=== PATIENT | male | born 1950 | race Caucasian/White ===

== ENCOUNTER 2023-02-24 16:25 | Emergency (ER) | payer MEDICAID, MEDICARE ==
[2023-02-24] MEDS: Sodium Chloride 0.9% 1,000 ML IV ONE (16:45)
[2023-02-24 16:54] LABS: BASOPHILS ABSOLUTE AUTO 0.01 10^3/uL (0.00-0.10); BASOPHILS PERCENT AUTO 0.1 % (0.0-1.0); EOSINOPHILS ABSOLUTE AUTO 0.13 10^3/uL (0.10-0.30); EOSINOPHILS PERCENT AUTO 1.7 % (1.0-3.0); HEMATOCRIT 50.3 % (40.0-52.0); HEMOGLOBIN 16.8 g/dL (13.0-17.0); IMMATURE GRAN ABSOLUTE AUTO 0.01 10^3/uL (0.00-0.50); IMMATURE GRAN PERCENT AUTO 0.1 % (0.0-5.0); LYMPHOCYTES ABSOLUTE AUTO 2.59 10^3/uL (1.00-4.00); LYMPHOCYTES PERCENT AUTO 33.5 % (20.0-40.0); MEAN CORPUSCULAR HEMOGLOBIN 30.8 pg (27.0-31.0); MEAN CORPUSCULAR HGB CONC 33.4 g/dL (32.0-36.0); MEAN CORPUSCULAR VOLUME 92.1 fL (82.0-92.0); MEAN PLATELET VOLUME 9.1 fL (7.4-10.4); MONOCYTES ABSOLUTE AUTO 0.73 10^3/uL (0.10-0.80); MONOCYTES PERCENT AUTO 9.4 % (2.0-8.0); NEUTROPHILS ABSOLUTE AUTO 4.27 10^3/uL (2.50-7.00); NEUTROPHILS PERCENT AUTO 55.2 % (50.0-70.0); PLATELET COUNT,PLT 148 10^3/uL (150-400); RED BLOOD CELL COUNT 5.46 10^6/uL (4.50-6.00); RED CELL DISTRIBUTION WIDTH 12.8 % (11.5-14.5); WHITE BLOOD CELL COUNT,WBC 7.74 10^3/uL (5.00-10.00)
[2023-02-24] MEDS: Labetalol 100 MG/20 ML MDV IVPUSH ONE ×2 (17:00→17:19)
[2023-02-24 17:09] LABS: ALBUMIN 3.32 g/dL (3.40-5.00); ANION GAP 13.7 mmol/L (5-15); BILIRUBIN TOTAL 0.2 mg/dL (0.2-1.0); CALCIUM 8.8 mg/dL (8.7-10.3); CARBON DIOXIDE,CO2 27.3 mmol/L (21.0-32.0); CREATININE 1.15 mg/dL (0.51-1.17); EST CRCL DRUG DOSING (CG) 61.01 mL/min; PROTEIN TOTAL,TP 7.2 g/dL (6.4-8.2)
[2023-02-24] MEDS: Hydrochlorothiazide 25 MG Tab PO ONE (17:56)
[2023-02-24] MEDS: Lisinopril 20 MG Tab PO STA (17:56)
== END 2023-02-24 18:20 | disposition home or self-care (01) ==
LOC: KA.ED 16:25
DX: E86.0 Dehydration (principal); I10 Essential (primary) hypertension; Z91.048 Other nonmedicinal substance allergy status
CPT/HCPCS: 36415; 71045; 80053; 83605; 84484; 85025; 93005; 96361; 96374; 99285-25; A9270-GY; J3490; J7030

== ENCOUNTER 2024-05-27 16:38 | Emergency (ER) | payer MEDICARE ==
[2024-05-27 17:45] LABS: INFLUENZA A NAA NEGATIVE (NEGATIVE); INFLUENZA B NAA NEGATIVE (NEGATIVE); RESPIRATORY SYNCYTIAL VIR NAA NEGATIVE (NEGATIVE)
[2024-05-27 17:46] LABS: CORONAVIRUS COVID-19 NAA POSITIVE (NEGATIVE)
[2024-05-27 18:32] LABS: BASOPHILS ABSOLUTE AUTO 0.01 10^3/uL (0.00-0.10); BASOPHILS PERCENT AUTO 0.2 % (0.0-1.0); EOSINOPHILS ABSOLUTE AUTO 0.09 10^3/uL (0.10-0.30); EOSINOPHILS PERCENT AUTO 1.6 % (1.0-3.0); HEMATOCRIT 43.9 % (40.0-52.0); HEMOGLOBIN 14.6 g/dL (13.0-17.0); IMMATURE GRAN ABSOLUTE AUTO 0.01 10^3/uL (0.00-0.50); IMMATURE GRAN PERCENT AUTO 0.2 % (0.0-5.0); LYMPHOCYTES ABSOLUTE AUTO 1.73 10^3/uL (1.00-4.00); LYMPHOCYTES PERCENT AUTO 30.1 % (20.0-40.0); MEAN CORPUSCULAR HEMOGLOBIN 31.7 pg (27.0-31.0); MEAN CORPUSCULAR HGB CONC 33.3 g/dL (32.0-36.0); MEAN CORPUSCULAR VOLUME 95.2 fL (82.0-92.0); MEAN PLATELET VOLUME 9.5 fL (7.4-10.4); MONOCYTES ABSOLUTE AUTO 0.91 10^3/uL (0.10-0.80); MONOCYTES PERCENT AUTO 15.8 % (2.0-8.0); NEUTROPHILS PERCENT AUTO 52.1 % (50.0-70.0); PLATELET COUNT,PLT 129 10^3/uL (150-400); RED BLOOD CELL COUNT 4.61 10^6/uL (4.50-6.00); WHITE BLOOD CELL COUNT,WBC 5.75 10^3/uL (5.00-10.00)
[2024-05-27 18:33] LABS: ANION GAP 13.5 mmol/L (5-15); CARBON DIOXIDE,CO2 28.6 mmol/L (21.0-32.0); CREATININE 1.26 mg/dL (0.51-1.17); EST CRCL DRUG DOSING (CG) 47.6 mL/min; POTASSIUM,K 4.1 mmol/L (3.5-5.1)
== END 2024-05-27 19:05 | disposition home or self-care (01) ==
LOC: KA.ED 16:38
DX: U07.1 COVID-19 (principal); I10 Essential (primary) hypertension; E78.00 Pure hypercholesterolemia, unspecified; J44.9 Chronic obstructive pulmonary disease, unspecified; Z86.73 Personal history of transient ischemic attack (TIA), and cerebral infarction without residual deficits; F17.210 Nicotine dependence, cigarettes, uncomplicated; Z91.048 Other nonmedicinal substance allergy status; Z91.014 Allergy to mammalian meats; Z91.018 Allergy to other foods; Z79.899 Other long term (current) drug therapy
CPT/HCPCS: 0241U; 71045; 80048; 85025; 99285; 99284

== ENCOUNTER 2024-06-06 10:13 | Observation (INO) | payer MEDICARE ==
[2024-06-06 11:02] LABS: BASOPHILS ABSOLUTE AUTO 0.01 10^3/uL (0.00-0.10); BASOPHILS PERCENT AUTO 0.1 % (0.0-1.0); EOSINOPHILS ABSOLUTE AUTO 0.12 10^3/uL (0.10-0.30); EOSINOPHILS PERCENT AUTO 1.8 % (1.0-3.0); HEMATOCRIT 42.2 % (40.0-52.0); HEMOGLOBIN 13.8 g/dL (13.0-17.0); IMMATURE GRAN ABSOLUTE AUTO 0.03 10^3/uL (0.00-0.50); IMMATURE GRAN PERCENT AUTO 0.4 % (0.0-5.0); LYMPHOCYTES ABSOLUTE AUTO 1.68 10^3/uL (1.00-4.00); LYMPHOCYTES PERCENT AUTO 24.6 % (20.0-40.0); MEAN CORPUSCULAR HEMOGLOBIN 30.9 pg (27.0-31.0); MEAN CORPUSCULAR HGB CONC 32.7 g/dL (32.0-36.0); MEAN CORPUSCULAR VOLUME 94.4 fL (82.0-92.0); MEAN PLATELET VOLUME 9.3 fL (7.4-10.4); MONOCYTES ABSOLUTE AUTO 0.79 10^3/uL (0.10-0.80); MONOCYTES PERCENT AUTO 11.5 % (2.0-8.0); NEUTROPHILS ABSOLUTE AUTO 4.21 10^3/uL (2.50-7.00); NEUTROPHILS PERCENT AUTO 61.6 % (50.0-70.0); PLATELET COUNT,PLT 151 10^3/uL (150-400); RED BLOOD CELL COUNT 4.47 10^6/uL (4.50-6.00); RED CELL DISTRIBUTION WIDTH 13.1 % (11.5-14.5); WHITE BLOOD CELL COUNT,WBC 6.84 10^3/uL (5.00-10.00)
[2024-06-06] MEDS: Iopamidol 755 Mg/ML 100 ML Bottle IV ONE (11:20)
[2024-06-06] MEDS: Sodium Chloride 0.9% 50 ML IV SCH (11:20)
[2024-06-06 11:24] LABS: ALANINE AMINOTRANSFERASE,ALT 78 U/L (14-63); ALBUMIN 3.31 g/dL (3.40-5.00); ALKALINE PHOSPHATASE 135 U/L (46-116); ASPARTATE AMNIOTRANSFERASE,AST 30 U/L (15-37); BILIRUBIN TOTAL 0.3 mg/dL (0.2-1.0); BLOOD UREA NITROGEN,BUN 23 mg/dL (7-18); CALCIUM 8.8 mg/dL (8.7-10.3); CARBON DIOXIDE,CO2 29.4 mmol/L (21.0-32.0); CHLORIDE,CL 105 mmol/L (98-107); GLUCOSE RANDOM 102 mg/dL (70-140); POTASSIUM,K 4.4 mmol/L (3.5-5.1); PROTEIN TOTAL,TP 7.1 g/dL (6.4-8.2); SODIUM,NA 142 mmol/L (136-145)
[2024-06-06 11:26] LABS: ESTIMATED GFR 64 mL/min (>=60)
[2024-06-06] MEDS: Sodium Chloride 0.9% 1,000 ML IV ONE (11:38)
[2024-06-06] MEDS: Sodium Chloride 0.9% 1,000 ML ONE (11:40)
[2024-06-06] MEDS: HYDROmorphone 1 MG/ML Syringe IVPUSH ONE (11:55)
[2024-06-06 12:16] LABS: APPEARANCE,URINE SLIGHTLY CLOUDY (CLEAR); COLOR,URINE RED (YELLOW); PH,URINE 6.5 (5.0-9.0); PROTEIN,URINE >=300 mg/dL (NEGATIVE)
[2024-06-06 12:17] LABS: BACTERIA,URINE RARE /HPF (NONE TO FEW); BILIRUBIN,URINE NEGATIVE (NEGATIVE); EPITHELIAL CELLS,URINE RARE /LPF; GLUCOSE,URINE NEGATIVE (NEGATIVE); KETONES,URINE NEGATIVE (NEGATIVE); LEUKOCYTE ESTERASE,URINE NEGATIVE (NEGATIVE); NITRITE,URINE NEGATIVE (NEGATIVE); OCCULT BLOOD,URINE LARGE (NEGATIVE); RBC,URINE PACKED /HPF (0-5); UROBILINOGEN,URINE 0.2 E.U./dL (0.2-1.0); WBC,URINE 0-5 /HPF (0-5)
[2024-06-06] MEDS ORDERED: Polyethylene Glycol 3350 Powder 17 GM Packet PO PRN (14:43)
[2024-06-06] MEDS ORDERED: Sodium Chloride 0.9% 10 ML Syringe FLUSH PRN (14:43)
[2024-06-06] MEDS ORDERED: Prochlorperazine 5 MG in Sodium Chloride 0.9% 50 ML IV PRN (14:43)
[2024-06-06] MEDS ORDERED: Docusate Sodium 100 MG Cap PO PRN (14:43)
[2024-06-06] MEDS: LORazepam 2 MG/ML SDV IVPUSH ONE (15:41)
[2024-06-06] MEDS: Lactated Ringers 1,000 ML IV SCH (15:43)
[2024-06-06] MEDS: fentaNYL 25 MCG/HR Transdermal Patch TRDERM SCH (16:51)
[2024-06-06] MEDS: Acetaminophen 325 MG Tab PO PRN (23:56)
[2024-06-07] MEDS: guaiFENesin 600 MG Tab.ER PO ONE (01:30)
[2024-06-07] MEDS: LORazepam 2 MG/ML SDV IVPUSH ONE (03:32)
[2024-06-07] MEDS: Pantoprazole 40 MG Tab.CR PO SCH (06:23)
[2024-06-07 07:22] LABS: BASOPHILS ABSOLUTE AUTO 0.01 10^3/uL (0.00-0.10); BASOPHILS PERCENT AUTO 0.2 % (0.0-1.0); EOSINOPHILS ABSOLUTE AUTO 0.22 10^3/uL (0.10-0.30); HEMATOCRIT 35.6 % (40.0-52.0); HEMOGLOBIN 11.5 g/dL (13.0-17.0); IMMATURE GRAN ABSOLUTE AUTO 0.02 10^3/uL (0.00-0.50); IMMATURE GRAN PERCENT AUTO 0.4 % (0.0-5.0); LYMPHOCYTES PERCENT AUTO 30.6 % (20.0-40.0); MEAN CORPUSCULAR HEMOGLOBIN 30.4 pg (27.0-31.0); MEAN CORPUSCULAR HGB CONC 32.3 g/dL (32.0-36.0); MEAN CORPUSCULAR VOLUME 94.2 fL (82.0-92.0); MEAN PLATELET VOLUME 9.4 fL (7.4-10.4); MONOCYTES ABSOLUTE AUTO 0.67 10^3/uL (0.10-0.80); MONOCYTES PERCENT AUTO 12.1 % (2.0-8.0); NEUTROPHILS ABSOLUTE AUTO 2.94 10^3/uL (2.50-7.00); NEUTROPHILS PERCENT AUTO 52.7 % (50.0-70.0); PLATELET COUNT,PLT 130 10^3/uL (150-400); RED BLOOD CELL COUNT 3.78 10^6/uL (4.50-6.00); WHITE BLOOD CELL COUNT,WBC 5.56 10^3/uL (5.00-10.00)
[2024-06-07 07:25] LABS: ANION GAP 12.2 mmol/L (5-15); CALCIUM 8.1 mg/dL (8.7-10.3); CARBON DIOXIDE,CO2 27.2 mmol/L (21.0-32.0); CREATININE 1.07 mg/dL (0.51-1.17); EST CRCL DRUG DOSING (CG) 53.82 mL/min; MAGNESIUM 1.6 mg/dL (1.8-2.4); POTASSIUM,K 4.4 mmol/L (3.5-5.1)
[2024-06-07] MEDS: guaiFENesin 600 MG Tab.ER PO SCH (08:23)
[2024-06-07] MEDS: Losartan 50 MG Tab PO SCH (12:27)
[2024-06-07] MEDS: ALPRAZolam 0.25 MG Tab PO PRN (13:26)
[2024-06-07] MEDS: Nicotine 21 MG/24 Hr Patch TRDERM SCH (13:26)
[2024-06-07] MEDS: Morphine 2 MG/ML SYRINGE IVPUSH PRN (14:34)
[2024-06-07] MEDS: oxyCODONE 5 MG Tab PO PRN (16:04)
[2024-06-08] MEDS: Ondansetron 4 MG/2 ML SDV IV PRN (08:17)
[2024-06-08 13:33] VITALS: BP 154/89; PULSE 78
== END 2024-06-08 12:31 | disposition home or self-care (01) ==
LOC: KA.ED 10:13 → KA.MS 14:17
PROVIDERS: ADMIT Family Medicine; ATTEND Family Medicine
DX: D49.4 Neoplasm of unspecified behavior of bladder (principal); I71.40 Abdominal aortic aneurysm, without rupture, unspecified; R53.1 Weakness; R31.9 Hematuria, unspecified; I12.9 Hypertensive chronic kidney disease with stage 1 through stage 4 chronic kidney disease, or unspecified chronic kidney disease; N18.9 Chronic kidney disease, unspecified; E78.00 Pure hypercholesterolemia, unspecified; J44.9 Chronic obstructive pulmonary disease, unspecified; N20.0 Calculus of kidney; N17.9 Acute kidney failure, unspecified; S32.010A Wedge compression fracture of first lumbar vertebra, initial encounter for closed fracture; S32.020A Wedge compression fracture of second lumbar vertebra, initial encounter for closed fracture; S32.030A Wedge compression fracture of third lumbar vertebra, initial encounter for closed fracture; S32.040A Wedge compression fracture of fourth lumbar vertebra, initial encounter for closed fracture; I25.10 Atherosclerotic heart disease of native coronary artery without angina pectoris; M54.50 Low back pain, unspecified; F17.210 Nicotine dependence, cigarettes, uncomplicated; Z79.899 Other long term (current) drug therapy; Z91.09 Other allergy status, other than to drugs and biological substances; Z91.018 Allergy to other foods; Z86.16 Personal history of COVID-19
CPT/HCPCS: 36415; 71045; 72148; 74174; 80048; 80053; 81001; 83605; 83735; 84145; 85025; 96361; 96374; 96375; 96376; 99223-GT; 99233-GT; 99238-GT; 99284; 99285-25; A9270-GY; G0378; J1170; J2060; J2270; J2405; J3490; J7030; J7120; Q3014; Q9967